=== PATIENT | male | born 1980 | race Two or more races ===

== ENCOUNTER 2017-07-17 08:57 | Outpatient (CLI) | payer OTHER ==
--- NOTE | 2017-07-17 17:05 | MRI Report ---
EXAM: RIGHT KNEE MRI WITHOUT CONTRAST EXAM DATE: 07/17/2017 10:04 AM. CLINICAL HISTORY: Chronic pain, intermittent swelling. Pain with running. COMPARISON: None. TECHNIQUE: Multiplanar, multisequence T1-weighted and fluid-sensitive sequences of the knee without c ontrast. Other: None. FINDINGS: Cruciate ligaments: The anterior and posterior cruciate ligaments appear intact. Medial meniscus: Some intrasubstance degeneration at the root of the posterior horn. No tear identifi ed. Lateral meniscus: Intact. No tear is identified. Collateral ligaments: The medial and fibular collateral ligaments appear intact. Bones and articular surfaces: Small amount of superficial cartilage fissuring over the patella. Mild cartilage thinning at the weightbearing medial compartment. Mild cartilage thinning at the posterior aspect of the lateral femoral condyle. No focal articular cartilage defects. Marrow signal within nor mal limits. Extensor mechanism: The patellar tendon and quadriceps insertion appear intact. IMPRESSION: 1. Minimal tricompartmental degenerative cartilage changes. 2. The menisci, cruciate, and collateral ligaments appear intact. [facility] MUSCULOSKELETAL RADIOLOGY SECTION Referring Provider Line: [phone] SITE ID: [id number]
== END 2017-07-17 08:58 | disposition home or self-care (01) ==
LOC: DI 08:57
PROVIDERS: ATTEND Registered Nurse Diabetes Educator
DX: M17.11 Unilateral primary osteoarthritis, right knee (principal)